=== PATIENT | male | born 1995 | race Caucasian/White ===

== ENCOUNTER 2021-05-19 15:06 | Emergency (ER) | payer OTHER, SELFPAY ==
[2021-05-19 15:26] VITALS: BP 131/91; PULSE 98; RESP 18; TEMP 37.6; O2SAT 98
--- NOTE | 2021-05-19 15:50 | ED.SKABFB ---
HPI - Skin/Abscess/Foreign Bdy General Chief complaint: Skin/Abscess/Foreign Body Stated complaint: Stitch Removal Source: patient and RN notes reviewed Limitations: no limitations History of Present Illness HPI narrative: The patient, previously mostly healthy, presents for suture removal. Patient states he had 7 stitches to his thumb placed about 10 days ago. He requests suture removal; he has no problems-without redness, decreased range of motion, decreased strength. Vital signs stable except for blood pressure 130s /90s. The patient has been informed that they may have pre-hypertension or Hypertension based on a BP reading in the department. I recommend that the patient call the primary care provider listed on their discharge instructions or a physician of their choice this week to arrange follow up for further evaluation of possible pre-hypertension or Hypertension Related Data Home Medications Medication Instructions Recorded Confirmed Keflex 05/19/21 Allergies Allergy/AdvReac Type Severity Reaction Status Date / Time No Known Allergies Allergy Verified 05/19/21 15:27 Review of Systems Review of Systems: General/Constitutional: No weight loss,fever Eyes: N0: Redness,discharge Ears/Nose/Throat: No: Epistaxis,ear discharge Respiratory: Denies: Hemoptysis Gastrointestinal: No Vomiting, Bleeding-rectal Skin: No Lumps, eruption Neurologic: No Focal Weakness,Sz Hematologic: Denies: Petechiae/Purpura Psychiatric: No: Suicida ideationl All Other Systems: Reviewed and Negative PMFSH Comments At time of signature, agree with nursing past medical, surgical, social and family history. There is no relevant family history pertinent to the presenting complaint Exam Narrative: General Appearance: Well appearing, Conjunctiva clear MS-finger: Normal strength (mostly intact, limited ROM), no tenderness ( laterally, with mild decreased ROM), Scant swelling (laterally), Other (no anterior drawer, no collateral laxity, ) Skin: Warm, Dry, Normal color, well-healing longitudinal thumb laceration with some healed, spreading of the wound distally Neurological: , Normal affect Course Vital Signs Vital signs: Vital Signs Temperature 99.7 F H 05/19/21 15:26 Pulse Rate 98 05/19/21 15: Respiratory Rate 18 05/19/21 15:26 Blood Pressure 131/91 H 05/19/21 15:26 Pulse Oximetry 98 05/19/21 15:26 Temperature 99.7 F H 05/19/21 15:26 Pulse Rate 98 05/19/21 15:26 Respiratory Rate 18 05/19/21 15:26 Blood Pressure 131/91 H 05/19/21 15:26 Pulse Oximetry 98 05/19/21 15:26 Discharge Plan Discharge Clinical Impression: Visit for suture removal Patient Disposition: Home, Self-Care Condition: Stable Instructions: Antibiotic Form, Stitches Removal (ED) Prescriptions: New mupirocin 2 % ointment 1 applic TOPICAL TID Qty: 30 RF: 0 No Action Keflex RF: 0 Follow-up/Referrals: PHYSICIAN,[employer] [Primary Care Provider] -
== END 2021-05-19 15:54 | disposition home or self-care (01) ==
PROVIDERS: Emergency Provider Emergency Medicine
DX: S61.012D Laceration without foreign body of left thumb without damage to nail, subsequent encounter (principal); W27.0XXD Contact with workbench tool, subsequent encounter
CPT/HCPCS: 99213; G0463